=== PATIENT | female | born 1965 | race African-American/Black ===

== ENCOUNTER 2021-12-12 00:43 | Inpatient (IN) | payer MEDICARE, MEDICAID ==
[2021-12-12] MEDS ORDERED: Ondansetron PF 4 MG/2 ML Vial ONE (01:04)
[2021-12-12] MEDS ORDERED: Morphine 4 MG/ML VIAL ONE ×2 (01:05→02:29)
[2021-12-12 01:09] LABS: Hemoglobin 13.4 g/dL (12.0-15.5); Mean Corpuscular HGB CONC 33.8 g/dL (32.0-36.0); Mean Corpuscular Volume 79.9 fl (81.6-98.3); Mean Platelet Volume 10.9 fl (7.4-10.4); Platelet Count 147 10x3/uL (150-450); RBC Distribution Width 15.4 % (11.5-14.5); Red Blood Cell (RBC) Count 4.97 10x6/uL (3.90-5.03); White Blood Cell (WBC) Count 11.1 10x3/uL (3.5-10.5)
[2021-12-12 01:12] LABS: MDiff Complete? YES
[2021-12-12 01:27] LABS: ALT (SGPT) 16 U/L (8-55); AST (SGOT) 17 U/L (5-34); Albumin 4.3 g/dL (3.5-5.0); Alkaline Phosphatase 135 U/L (40-110); Anion Gap 16 mmol/L (10-20); BUN (Urea Nitrogen) 17 mg/dL (9.8-20.1); Bilirubin, Total 0.2 mg/dL (0.2-1.2); Calc. Creatinine Clearance 0 mL/min (70-130); Calcium 9.9 mg/dL (7.8-10.44); Carbon Dioxide 25 mmol/L (22-29); Chloride 105 mmol/L (98-107); Estimated GFR 80; Globulin 3.5 g/dL (2.4-3.5); Glucose 117 mg/dL (70-105); Lipase 49 U/L (8-78); Potassium 4.2 mmol/L (3.5-5.1); Protein, Total 7.8 g/dL (6.0-8.3); Sodium 142 mmol/L (136-145)
[2021-12-12 01:30] LABS: Eosinophils 1 % (0-10); Lymphocytes 46 % (21-51); Monocytes 11 % (0-10); Neutrophil 42 % (42-75)
[2021-12-12 01:56] LABS: Bilirubin Neg (Negative); Blood, Urine 10 (Negative); Clarity Clear (Clear); Glucose, Urine (Dipstick) Normal (Negative); Ketone, Urine Negative (Negative); Leukocyte 25 (Negative); Nitrite Negative (Negative); Protein, Urine (Dipstick) Negative (Neg-Trace)
[2021-12-12 02:04] LABS: Bacteria/HPF 1+ HPF (None Seen); Squamous Epithelial 0-3 HPF (0-3)
[2021-12-12] MEDS ORDERED: Ondansetron PF 4 MG/2 ML Vial IVP PRN (03:19)
[2021-12-12] MEDS ORDERED: Morphine 4 MG/ML VIAL SLOW IVP PRN (03:19)
[2021-12-12] MEDS ORDERED: Dextrose 5% in Water 1,000 ML IV PRN (03:29)
[2021-12-12] MEDS ORDERED: HumaLOG 300 UNITS/3 ML VIAL SC PRN (03:29)
[2021-12-12] MEDS ORDERED: Dextrose 50% Abboject 50 ML SYRINGE SLOW IVP PRN (03:29)
[2021-12-12 03:55] LABS: Magnesium 2.2 mg/dL (1.6-2.6)
[2021-12-12 04:23] LABS: SARS-CoV-2 NAA Rapid Test Not Detected (NotDetected)
[2021-12-12] MEDS ORDERED: Morphine 2 MG/ML VIAL SLOW IVP PRN (04:40)
[2021-12-12] MEDS ORDERED: Metoprolol Tartrate 5 MG/5 ML VIAL IVP SCH (08:30)
[2021-12-12] MEDS ORDERED: Aspirin 300 MG Suppository PR SCH (09:00)
[2021-12-12] MEDS: 1/2 NS w/KCL 20 mEq 1,000 ML IV SCH ×2 (09:23→12:42)
[2021-12-12 12:19] VITALS: BMI 32.1
[2021-12-12 12:22] VITALS: BP 117/56; TEMP 96.8
[2021-12-12] MEDS ORDERED: Enoxaparin Sodium 40 MG/0.4 ML SYRINGE SC SCH (21:00)
[2021-12-13] MEDS ORDERED: Enoxaparin Sodium 40 MG/0.4 ML SYRINGE SC SCH (09:00)
== END 2021-12-12 13:00 | disposition left against medical advice (07) | DRG 390 ==
LOC: CSHERS 00:43 → CSHTELE 08:13
PROVIDERS: ADMIT Family Medicine; ATTEND Family Medicine
DX: K56.609 Unspecified intestinal obstruction, unspecified as to partial versus complete obstruction (principal); Z20.822 Contact with and (suspected) exposure to COVID-19; E11.9 Type 2 diabetes mellitus without complications; I11.0 Hypertensive heart disease with heart failure; E78.5 Hyperlipidemia, unspecified; J44.9 Chronic obstructive pulmonary disease, unspecified; F17.210 Nicotine dependence, cigarettes, uncomplicated; K21.9 Gastro-esophageal reflux disease without esophagitis; I50.9 Heart failure, unspecified; M54.50 Low back pain, unspecified; K59.00 Constipation, unspecified; G89.29 Other chronic pain; Z79.84 Long term (current) use of oral hypoglycemic drugs; I25.2 Old myocardial infarction; Z79.899 Other long term (current) drug therapy; Z90.710 Acquired absence of both cervix and uterus; Z82.49 Family history of ischemic heart disease and other diseases of the circulatory system; Z80.49 Family history of malignant neoplasm of other genital organs; Z90.722 Acquired absence of ovaries, bilateral
CPT/HCPCS: 36416; 71045; 74176; 80053; 81003; 81015; 83690; 83735; 84484; 85025; 93005; 96374; 96375; 96376; J2270; J2405; U0002

== ENCOUNTER 2022-06-27 11:48 | Emergency (ER) | payer MEDICARE, MEDICAID ==
[2022-06-27] MEDS ORDERED: Ketorolac Tromethamine 30 MG/ML VIAL ONE (12:26)
== END 2022-06-27 13:04 | disposition home or self-care (01) ==
LOC: CSHERS 11:48
DX: S92.514A Nondisplaced fracture of proximal phalanx of right lesser toe(s), initial encounter for closed fracture (principal); E11.9 Type 2 diabetes mellitus without complications; I10 Essential (primary) hypertension; W22.8XXA Striking against or struck by other objects, initial encounter
CPT/HCPCS: 96374; J1885

== ENCOUNTER 2022-07-06 16:38 | Emergency (ER) | payer MEDICARE, MEDICAID ==
[2022-07-06 17:40] LABS: CK (CPK) 149 U/L (29-168); Lipase 55 U/L (8-78)
[2022-07-06 17:41] LABS: ALT (SGPT) 33 U/L (8-55); AST (SGOT) 28 U/L (5-34); Albumin 4.1 g/dL (3.5-5.0); Alkaline Phosphatase 118 U/L (40-110); Anion Gap 18 mmol/L (10-20); BUN (Urea Nitrogen) 10 mg/dL (9.8-20.1); Bilirubin, Total 0.3 mg/dL (0.2-1.2); Calc. Creatinine Clearance 0 mL/min (70-130); Calcium 9.4 mg/dL (7.8-10.44); Carbon Dioxide 22 mmol/L (22-29); Chloride 107 mmol/L (98-107); Estimated GFR 83; Globulin 3.3 g/dL (2.4-3.5); Glucose 95 mg/dL (70-105); Potassium 3.8 mmol/L (3.5-5.1); Protein, Total 7.4 g/dL (6.0-8.3); Sodium 143 mmol/L (136-145)
[2022-07-06 19:00] LABS: #Basophils 0.1 10x3/uL (0.0-0.2); #Eosinphils 0.3 10x3/uL (0.0-0.5); #Monocytes 0.7 10x3/uL (0.0-1.1); #Neutrophils 3.7 10x3/uL (1.5-8.4); %Basophils 0.6 % (0.0-2.0); %Lymphocytes 47.5 % (18.0-47.0); %Monocytes 7.6 % (0.0-10.0); Hemoglobin 11.5 g/dL (12.0-15.5); Mean Corpuscular HGB CONC 32.9 g/dL (32.0-36.0); Mean Corpuscular Hemoglobin 27.1 pg (27.0-33.0); Mean Corpuscular Volume 82.5 fl (81.6-98.3); Mean Platelet Volume 11.3 fl (7.4-10.4); Platelet Count 159 10x3/uL (150-450); RBC Distribution Width 14.4 % (11.5-14.5); Red Blood Cell (RBC) Count 4.24 10x6/uL (3.90-5.03); White Blood Cell (WBC) Count 9.1 10x3/uL (3.5-10.5)
== END 2022-07-06 19:25 | disposition home or self-care (01) ==
LOC: CSHERS 16:38
DX: I11.0 Hypertensive heart disease with heart failure (principal); I50.9 Heart failure, unspecified; E11.9 Type 2 diabetes mellitus without complications; J44.9 Chronic obstructive pulmonary disease, unspecified
CPT/HCPCS: 36415; 71045; 80053; 82550; 83690; 83880; 84484; 85025; 93005

== ENCOUNTER 2023-07-20 14:16 | Outpatient (CLI) | payer OTHER, MEDICAID | END 2023-07-20 14:17 | disposition home or self-care (01) | LOC: CSHULT 14:16 | PROVIDERS: ATTEND Family Medicine Sports Medicine | DX: R10.84 Generalized abdominal pain (principal) | CPT/HCPCS: 76700 ==

== ENCOUNTER 2024-01-29 16:01 | Inpatient (IN) | payer OTHER, MEDICAID ==
[~2024-01-29 16:01] MED LIST: Iopamidol 370 76% 100 ML VIAL ONE
[2024-01-29 17:46] LABS: Bilirubin Neg (Negative); Blood, Urine 10 (Negative); Clarity Clear (Clear); Glucose, Urine (Dipstick) Normal (Negative); Ketone, Urine Negative (Negative); Leukocyte Negative (Negative); Nitrite Negative (Negative); Protein, Urine (Dipstick) 15 mg/dl (Neg-Trace); Urobilinogen Normal mg/dL (Less than 2)
[2024-01-29] MEDS ORDERED: Ondansetron PF 4 MG/2 ML Vial ONE (17:52)
[2024-01-29] MEDS ORDERED: Morphine 4 MG/ML VIAL ONE ×2 (17:52→19:54)
[2024-01-29] MEDS ORDERED: Ketorolac Tromethamine 30 MG (1 mL) VIAL ONE (17:52)
[2024-01-29 18:13] LABS: CAUTI Indications for Culture Pelvic or flank pain; RBC/HPF 0-3 HPF (0-3); Squamous Epithelial 0-3 HPF (0-3); Trichomonas/HPF Rare HPF (None Seen)
[2024-01-29 18:15] LABS: Bacteria/HPF 1+ HPF (None Seen); Mucous/LPF 1+ LPF (<2+)
[2024-01-29 18:16] LABS: Urine Culture Reflex No No
[2024-01-29 18:20] LABS: #Basophils 0.04 10x3/uL (0.0-0.2); #Eosinphils 0.23 10x3/uL (0.0-0.5); #Monocytes 0.76 10x3/uL (0.0-1.1); #Neutrophils 3.81 10x3/uL (1.5-8.4); %Basophils 0.5 % (0.0-2.0); %Eosinophils 2.7 % (0.0-6.0); %Lymphocytes 42.7 % (18.0-47.0); %Monocytes 8.9 % (0.0-10.0); %Neutrophils 44.7 % (40.0-75.0); Hematocrit 37.4 % (34.9-44.5); Mean Corpuscular HGB CONC 32.1 g/dL (32.0-36.0); Mean Corpuscular Volume 84.2 fL (81.6-98.3); Mean Platelet Volume 10.8 fL (7.4-10.4); Platelet Count 159 10x3/uL (150-450); Red Blood Cell (RBC) Count 4.44 10x6/uL (3.90-5.03); White Blood Cell (WBC) Count 8.5 10x3/uL (3.5-10.5)
[2024-01-29 18:22] LABS: ALT (SGPT) 52 U/L (8-55); AST (SGOT) 47 U/L (5-34); Albumin 3.7 g/dL (3.5-5.0); Alkaline Phosphatase 99 U/L (40-110); Anion Gap 14 mmol/L (10-20); BUN (Urea Nitrogen) 17 mg/dL (9.8-20.1); Bilirubin, Total 0.3 mg/dL (0.2-1.2); Calc. Creatinine Clearance 0 mL/min (70-130); Calcium 9.7 mg/dL (7.8-10.44); Carbon Dioxide 25 mmol/L (22-29); Chloride 106 mmol/L (98-107); Estimated GFR 67; Globulin 3.9 g/dL (2.4-3.5); Glucose 90 mg/dL (70-105); Lipase 39 U/L (8-78); Potassium 3.6 mmol/L (3.5-5.1); Protein, Total 7.6 g/dL (6.0-8.3); Sodium 141 mmol/L (136-145)
[2024-01-29] MEDS ORDERED: Glucagon 1 MG/ML KIT IM PRN (20:17)
[2024-01-29] MEDS ORDERED: Dextrose 5% in Water 1,000 ML IV PRN (20:17)
[2024-01-29] MEDS ORDERED: Dextrose 50% Abboject 50 ML SYRINGE SLOW IVP PRN (20:17)
[2024-01-29] MEDS ORDERED: Insulin Lispro 100 UNIT/ML 10 ML VIAL SC PRN (20:18)
[2024-01-29] MEDS ORDERED: Calcium Carbonate 500 MG ChewTAB PO PRN (20:18)
[2024-01-29] MEDS ORDERED: Acetaminophen 325 MG TAB PO PRN (20:18)
[2024-01-29] MEDS ORDERED: Ipratropium/Albuterol 3 ML NEB NEB PRN (20:37)
[2024-01-29] MEDS: traMADol HCl 50 MG TAB PO PRN (23:36)
[2024-01-29] MEDS: Zolpidem Tartrate 5 MG TAB PO PRN (23:36)
[2024-01-29] MEDS: Pantoprazole 40 MG VIAL IVP SCH (23:40)
[2024-01-29] MEDS: Metoprolol Tartrate 25 MG TAB PO SCH (23:45)
[2024-01-29] MEDS: Lactated Ringer's 1,000 ML IV SCH (23:47)
[2024-01-29] MEDS: LevoFLOXacin 500 mg/D5W 500 MG in Premix 1 BAG IVPB SCH (23:50)
[2024-01-29] MEDS: metroNIDAZOLE 500 MG in Premix 1 BAG IVPB SCH (23:58)
[2024-01-30] MEDS: Morphine 2 MG/ML VIAL SLOW IVP PRN (04:44)
[2024-01-30] MEDS: Ondansetron PF 4 MG/2 ML Vial IVP PRN (04:45)
[2024-01-30 05:09] LABS: #Basophils 0.04 10x3/uL (0.0-0.2); #Eosinphils 0.21 10x3/uL (0.0-0.5); #Monocytes 0.61 10x3/uL (0.0-1.1); #Neutrophils 2.95 10x3/uL (1.5-8.4); %Basophils 0.6 % (0.0-2.0); %Lymphocytes 44.6 % (18.0-47.0); %Monocytes 8.8 % (0.0-10.0); %Neutrophils 42.6 % (40.0-75.0); Hematocrit 34.9 % (34.9-44.5); Hemoglobin 11.4 g/dL (12.0-15.5); Mean Corpuscular HGB CONC 32.7 g/dL (32.0-36.0); Mean Corpuscular Hemoglobin 28.2 pg (27.0-33.0); Mean Corpuscular Volume 86.4 fL (81.6-98.3); Mean Platelet Volume 10.9 fL (7.4-10.4); Platelet Count 134 10x3/uL (150-450); RBC Distribution Width 14.2 % (11.5-14.5); Red Blood Cell (RBC) Count 4.04 10x6/uL (3.90-5.03); White Blood Cell (WBC) Count 6.9 10x3/uL (3.5-10.5)
[2024-01-30 05:21] LABS: ALT (SGPT) 41 U/L (8-55); AST (SGOT) 34 U/L (5-34); Albumin 3.2 g/dL (3.5-5.0); Alkaline Phosphatase 82 U/L (40-110); Anion Gap 11 mmol/L (10-20); BUN (Urea Nitrogen) 17 mg/dL (9.8-20.1); Bilirubin, Total 0.4 mg/dL (0.2-1.2); Calc. Creatinine Clearance 80 mL/min (70-130); Calcium 8.7 mg/dL (7.8-10.44); Carbon Dioxide 24 mmol/L (22-29); Chloride 110 mmol/L (98-107); Estimated GFR 76; Globulin 3.4 g/dL (2.4-3.5); Glucose 98 mg/dL (70-105); Potassium 3.2 mmol/L (3.5-5.1); Protein, Total 6.6 g/dL (6.0-8.3); Sodium 142 mmol/L (136-145)
[2024-01-30 06:47] VITALS: BMI 27.4
[2024-01-30] MEDS: Potassium Chloride 20 MEQ in Premix 1 BAG IVPB SCH ×2 (08:00→14:12)
[2024-01-30] MEDS ORDERED: Metoprolol Tartrate 25 MG TAB PO SCH (09:00)
[2024-01-30] MEDS: Pantoprazole 40 MG VIAL IVP SCH ×2 (10:07→18:59)
[2024-01-30] MEDS: metroNIDAZOLE 500 MG in Premix 1 BAG IVPB SCH (10:30)
[2024-01-30 15:22] LABS: #Basophils 0.04 10x3/uL (0.0-0.2); #Eosinphils 0.21 10x3/uL (0.0-0.5); #Monocytes 0.71 10x3/uL (0.0-1.1); #Neutrophils 3.33 10x3/uL (1.5-8.4); %Basophils 0.5 % (0.0-2.0); %Eosinophils 2.8 % (0.0-6.0); %Lymphocytes 41.8 % (18.0-47.0); %Monocytes 9.6 % (0.0-10.0); %Neutrophils 45.2 % (40.0-75.0); Hematocrit 34.6 % (34.9-44.5); Hemoglobin 11.3 g/dL (12.0-15.5); Mean Corpuscular HGB CONC 32.7 g/dL (32.0-36.0); Mean Corpuscular Volume 85.9 fL (81.6-98.3); Mean Platelet Volume 11.2 fL (7.4-10.4); Platelet Count 152 10x3/uL (150-450); RBC Distribution Width 14.3 % (11.5-14.5); Red Blood Cell (RBC) Count 4.03 10x6/uL (3.90-5.03); White Blood Cell (WBC) Count 7.4 10x3/uL (3.5-10.5)
[2024-01-30 15:50] LABS: Anion Gap 12 mmol/L (10-20); BUN (Urea Nitrogen) 16 mg/dL (9.8-20.1); Calc. Creatinine Clearance 82 mL/min (70-130); Carbon Dioxide 25 mmol/L (22-29); Chloride 108 mmol/L (98-107); Estimated GFR 78; Glucose 85 mg/dL (70-105); Potassium 3.7 mmol/L (3.5-5.1); Sodium 141 mmol/L (136-145)
[2024-01-30] MEDS: Metoprolol Tartrate 25 MG TAB PO SCH (18:58)
[2024-01-30] MEDS: LevoFLOXacin 500 mg/D5W 500 MG in Premix 1 BAG IVPB SCH (18:58)
[2024-01-31 05:22] LABS: #Basophils 0.03 10x3/uL (0.0-0.2); #Eosinphils 0.16 10x3/uL (0.0-0.5); #Monocytes 0.58 10x3/uL (0.0-1.1); #Neutrophils 3.04 10x3/uL (1.5-8.4); %Basophils 0.5 % (0.0-2.0); %Eosinophils 2.5 % (0.0-6.0); %Lymphocytes 39.7 % (18.0-47.0); %Monocytes 9.1 % (0.0-10.0); Anion Gap 13 mmol/L (10-20); BUN (Urea Nitrogen) 11 mg/dL (9.8-20.1); Calc. Creatinine Clearance 92 mL/min (70-130); Carbon Dioxide 23 mmol/L (22-29); Chloride 108 mmol/L (98-107); Estimated GFR 90; Glucose 96 mg/dL (70-105); Hematocrit 32.5 % (34.9-44.5); Hemoglobin 10.8 g/dL (12.0-15.5); Mean Corpuscular HGB CONC 33.2 g/dL (32.0-36.0); Mean Corpuscular Volume 84.2 fL (81.6-98.3); Platelet Count 147 10x3/uL (150-450); Potassium 3.5 mmol/L (3.5-5.1); RBC Distribution Width 13.8 % (11.5-14.5); Red Blood Cell (RBC) Count 3.86 10x6/uL (3.90-5.03); Sodium 140 mmol/L (136-145); White Blood Cell (WBC) Count 6.3 10x3/uL (3.5-10.5)
[2024-01-31 08:36] VITALS: BP 186/83; TEMP 98.4
== END 2024-01-31 09:00 | disposition home or self-care (01) | DRG 394 ==
LOC: CSHERS 16:01 → CSHTELE 23:06 → OBSVTOIN 23:06
PROVIDERS: ADMIT Student in an Organized Health Care Education/Training Program; ATTEND Family Medicine
DX: K55.9 Vascular disorder of intestine, unspecified (principal); N39.0 Urinary tract infection, site not specified; K21.9 Gastro-esophageal reflux disease without esophagitis; J44.9 Chronic obstructive pulmonary disease, unspecified; E11.9 Type 2 diabetes mellitus without complications; E78.5 Hyperlipidemia, unspecified; I10 Essential (primary) hypertension; A59.9 Trichomoniasis, unspecified; I25.10 Atherosclerotic heart disease of native coronary artery without angina pectoris; Z87.891 Personal history of nicotine dependence; Z79.82 Long term (current) use of aspirin; Z79.84 Long term (current) use of oral hypoglycemic drugs; Z79.899 Other long term (current) drug therapy; I25.2 Old myocardial infarction; Z90.710 Acquired absence of both cervix and uterus; Z90.722 Acquired absence of ovaries, bilateral
CPT/HCPCS: 36415; 36416; 74177; 80048; 80053; 81001; 83605; 83690; 85025; 86140; 87086; 94760; 96374; 96375; 96376; J1885; J1956; J2272; J2405; J2470; J3480; J7120; Q9967

== ENCOUNTER 2024-12-31 08:12 | Outpatient (CLI) | payer OTHER | END 2024-12-31 08:13 | disposition home or self-care (01) | LOC: CSHULT 08:12 | PROVIDERS: ATTEND Family Medicine Sports Medicine | DX: R10.13 Epigastric pain (principal) | CPT/HCPCS: 76700 ==